=== PATIENT | female | born 1980 | race Caucasian/White ===

== ENCOUNTER 2022-09-16 03:53 | Emergency (ER) | payer BC, OTHER ==
[2022-09-16] MEDS ORDERED: Sodium Chloride 0.9% 1000 ML 1,000 ML IV STA (04:15)
[2022-09-16] MEDS ORDERED: Hydromorphone 1 mg/ml Injection IV ONE (04:15)
[2022-09-16] MEDS ORDERED: Zofran 4 MG/2 ML VIAL IV ONE (04:15)
[2022-09-16] MEDS ORDERED: Zofran 4 MG/2 ML VIAL ONE (04:20)
[2022-09-16] MEDS ORDERED: Hydromorphone 1 mg/ml Injection ONE (04:20)
[2022-09-16] MEDS ORDERED: Sodium Chloride 0.9% 1000 ML 1,000 ML ONE (04:20)
[2022-09-16 04:26] LABS: Absolute Neutrophil Ct (ANC) 7.33 x10^3/uL (1.4-6.9); Eosinophil % 1.6 % (0.00-5.0); Eosinophil (Absolute #) 0.18 x10^3/uL (0-0.5); Hematocrit 41.4 % (35-47); Hemoglobin 13.4 g/dL (12.0-16.0); Lymphocyte (Absolute #) 3.11 x10^3/uL (1.0-4.6); Lymphocytes % 26.9 % (24.0-44.0); Mean Cell Volume 90.2 fL (78-100); Mean Corpuscular Hemoglobin 29.2 pg (26-32); Mean Corpuscular Hgb Concent. 32.4 g/dL (32-36); Mean Platelet Volume 10.3 fL (7.5-11.0); Monocyte (Absolute #) 0.77 x10^3/uL (0.0-1.3); Monocytes % 6.7 % (0.0-12.0); Neutrophil % 63.5 % (36.0-66.0); Platelet Count 297 x10^3/uL (150-450); Red Blood Count 4.59 x10^6/uL (4.1-5.4); Red Cell Distribution Width 13.1 % (11.5-14.0); White Blood Count 11.5 x10^3/uL (4.0-10.5)
[2022-09-16 04:40] LABS: ALBUMIN 4.4 g/dL (3.5-5.0); ALKALINE PHOSPHATASE 57 U/L (38-126); AMYLASE 65 U/L (30-110); ANION GAP 12.1 MEQ/L (5-15); BLOOD UREA NITROGEN 19 mg/dL (7-17); CHLORIDE 105 mmol/L (98-107); Calcium 9.3 mg/dL (8.4-10.2); Carbon Dioxide 25 mmol/L (22-30); Creatinine 1 0.62 mg/dL (0.52-1.04); EST GLOMERULAR FILTRATION RATE > 60.0 ML/MIN; Glucose 104 mg/dL (74-106); LIPASE 136 U/L (23-300); Potassium 3.8 mmol/L (3.5-5.1); SGOT/AST 39 U/L (14-36); SGPT/ALT 34 U/L (0-35); SODIUM 138 mmol/L (137-145); Total Protein 7.3 g/dL (6.3-8.2)
[2022-09-16 04:42] LABS: INR 1.03 (0.8-3.0); PROTIME 10.9 SECONDS (9.4-12.5)
[2022-09-16 05:05] VITALS: O2SAT 97
[2022-09-16 05:42] LABS: Appearance CLEAR (CLEAR); Bilirubin NEGATIVE (NEGATIVE); Dipstick done @ ? MAIN LAB; Glucose NEGATIVE (NEGATIVE); Ketones NEGATIVE (NEGATIVE); Nitrite NEGATIVE (NEGATIVE); Ph 6.5 (5-6); Protein,Urine Dip NEGATIVE (Negative); RBC TRACE-LYSED Ery/ul (0-5); Urobilinogen 0.2 mg/dL (0-1)
[2022-09-16 05:49] LABS: Bacteria RARE /HPF (NEGATIVE); Epithelial Cells RARE /HPF (FEW); Mucus SLIGHT /HPF (NEGATIVE)
[2022-09-16 05:52] LABS: Urine Cultured Indicated? NO
[2022-09-16 06:10] VITALS: BP 103/75; PULSE 63
--- NOTE | 2022-09-16 06:10 | ERPHSYRPT ---
- History of Present Illness Time Seen by Provider: 09/16/22 04:00 Historian: patient Exam Limitations: no limitations Patient Subjective Stated Complaint: pt states she woke up at approx 0230 with epigastric pain. rates 06/27 Triage Nursing Assessment: pt alert and oriented, answers questions approp. pt ambulatory with steady gait noted. respirations nonlabored. skin warm and dry. abd soft and nontender tli light palpation. Physician History: Patient is a 42-year-old female who presents with a complaint of epigastric pain which started approximately 2:30 AM she has had nausea but no vomiting the pain is epigastric in location and goes through to the back. Only previous surgeries include a vaginal ablation and bilateral tubal ligation as well as ovarian cyst. Timing/Duration: today Activities at Onset: none Quality: cramping Abdominal Pain Onset Location: epigastric Pain Radiation: back Severity of Pain-Max: severe Severity of Pain-Current: mild Modifying Factors: Improves With: nothing Associated Symptoms: nausea Previous symptoms: no prior history Allergies/Adverse Reactions: strawberry Allergy (Mild, Verified 09/16/22 04:08) Home Medications: Fexofenadine HCl [Allie Allergy] 180 mg PO DAILY 09/16/22 [History] Thyroid,Pork [Plaster Foreman Thyroid 120] 60 mg PO DAILY 09/16/22 [History] Hx Tetanus, Diphtheria Vaccination/Date Given: Yes Hx Influenza Vaccination/Date Given: Yes Hx Pneumococcal Vaccination/Date Given: No Immunizations Up to Date: Yes Travel Risk - International Travel Have you traveled outside of the country in past 3 weeks: No - Coronavirus Screening Are you exhibiting any of the following symptoms?: No Close contact with a COVID-19 positive Pt in past 14-21 Days: No - Vaccine Status Have you recieved a Covid-19 vaccination: Yes 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: [employer] - Vaccination Dates Date of 2cond Vaccination (if applicable): jul 2022 - Review of Systems Constitutional: No Fever, No Chills Eyes: No Symptoms Ears, Nose, & Throat: No Symptoms Respiratory: No Cough, No Dyspnea Cardiac: No Chest Pain, No Edema, No Syncope Abdominal/Gastrointestinal: Abdominal Pain, Nausea, No Vomiting, No Diarrhea Genitourinary Symptoms: No Dysuria Musculoskeletal: No Back Pain, No Neck Pain Skin: No Rash Neurological: No Dizziness, No Focal Weakness, No Sensory Changes Psychological: No Symptoms Endocrine: No Symptoms All Other Systems: Reviewed and Negative - Past Medical History Pertinent Past Medical History: Yes Other Medical History: OVARIAN CYSTS - Past Surgical History Past Surgical History: Yes Musculoskeletal: Orthopedic Surgery Female Surgical History: Tubal Ligation Other Surgical History: KNEE, uterine ablation, surgery for ovarian cysts - Social History Smoking Status: Former smoker Exposure to second hand smoke: No Drug Use: none Patient Lives Alone: No - Female History Hx Last Menstrual Period: 3 weeks Hx Now: No - Nursing Vital Signs Nursing Vital Signs: Initial Vital Signs Temperature 97.1 F 09/16/22 03:56 Pulse Rate 90 09/16/22 03:56 Respiratory Rate 16 09/16/22 03:56 Blood Pressure 113/74 09/16/22 03:56 O2 Sat by Pulse Oximetry 98 09/16/22 03:56 Pain Scale Pain Intensity 2 - Physical Exam General Appearance: moderate distress, alert Eye Exam: PERRL/EOMI, eyes nml inspection Ears, Nose, Throat Exam: normal ENT inspection, pharynx normal, moist mucous membranes Neck Exam: normal inspection, non-tender, supple, full range of motion Respiratory Exam: normal breath sounds, lungs clear, No respiratory distress Cardiovascular Exam: regular rate/rhythm, normal heart sounds Gastrointestinal/Abdomen Exam: tenderness (Epigastrium), guarding, No mass Back Exam: normal inspection, normal range of motion, No CVA tenderness, No vertebral tenderness Extremity Exam: normal inspection, normal range of motion, pelvis stable Neurologic Exam: alert, oriented x 3, cooperative, normal mood/affect, nml cerebellar function, sensation nml, No motor deficits Skin Exam: normal color, warm, dry SpO2: 97 - Course Nursing assessment & vital signs reviewed: Yes EKG Interpreted by Me: RATE (60), Sinus Rhythm, NORMAL AXIS, NORMAL INTERVALS, NORMAL QRS, NORMAL ST-T - CT Exams Abdomen/Pelvis CT Interpretation: Tele-radiologist Report Ordered Tests: Active Orders 24 hr Category Date Time Status EKG-ER Only STAT Care 09/16/22 04:15 Active IV Insertion STAT Care 09/16/22 04:15 Active ABDOMEN AND PELVIS W CONTRAST [CT] Stat Exams 09/16/22 04:16 Taken CHEST 1 VIEW (PORTABLE) Stat Exams 09/16/22 04:16 Taken AMYLASE Stat Lab 09/16/22 04:23 Completed CBC W DIFF Stat Lab 09/16/22 04:23 Completed CMP Stat Lab 09/16/22 04:23 Completed LIPASE Stat Lab 09/16/22 04:23 Completed Lactic Acid Stat Lab 09/16/22 04:15 Ordered PROTIME WITH INR Stat Lab 09/16/22 04:23 Completed TROPONIN Q4H Lab 09/16/22 04:23 Completed TROPONIN Q4H Lab 09/16/22 08:30 Ordered TROPONIN Q4H Lab 09/16/22 12:30 Ordered UA W/RFX CULTURE Stat Lab 09/16/22 05:34 Completed Medication Summary Discontinued Medications Generic Name Dose Route Start Last Admin Trade Name Freq PRN Reason Stop Dose Admin Hydromorphone HCl 1 mg 09/16/22 04:15 09/16/22 04:24 Hydromorphone 1 Mg/1ml Inj 1 Mg/Ml Syringe IV 09/16/22 04:16 1 mg STAT ONE Administration Hydromorphone HCl Confirm 09/16/22 04:20 Hydromorphone 1 Mg/1ml Inj 1 Mg/Ml Syringe Administered 09/16/22 04:21 Dose 1 mg .ROUTE .STK-MED ONE Sodium Chloride 1,000 mls @ 999 mls/hr 09/16/22 04:15 09/16/22 05:35 Sodium Chloride 0.9% 1000 Ml IV 09/16/22 05:15 Infused .Q1H1M STA Infusion Sodium Chloride Confirm 09/16/22 04:20 Sodium Chloride 0.9% 1000 Ml Administered 09/16/22 04:21 Dose 1,000 mls @ ud .ROUTE .STK-MED ONE Ondansetron HCl 4 mg 09/16/22 04:15 09/16/22 04:24 Ondansetron Hcl 4 Mg/2 Ml Vial IV 09/16/22 04:16 4 mg STAT ONE Administration Ondansetron HCl Confirm 09/16/22 04:20 Ondansetron Hcl 4 Mg/2 Ml Vial Administered 09/16/22 04:21 Dose 4 mg .ROUTE .STK-MED ONE Lab/Rad Data: Laboratory Result Diagrams 09/16/22 04:23 09/16/22 04:23 Laboratory Results 09/16/22 09/16/22 09/16/22 Range/Units 05:34 04:23 04:23 WBC (4.0-10.5) x10^3/uL RBC (4.1-5.4) x10^6/uL Hgb (12.0-16.0) g/dL Hct (35-47) % MCV (78-100) fL MCH (26-32) pg MCHC (32-36) g/dL RDW (11.5-14.0) % Plt Count (150-450) x10^3/uL MPV (7.5-11.0) fL Gran % (36.0-66.0) % Immature Gran % (Auto) (0.00-0.4) % Nucleat RBC Rel Count (0.00-0.1) % Eos # (Auto) (0-0.5) x10^3/uL Immature Gran # (Auto) (0.00-0.03) x10^3u/L Absolute Lymphs (auto) (1.0-4.6) x10^3/uL Absolute Monos (auto) (0.0-1.3) x10^3/uL Absolute Nucleated RBC (0.00-0.01) x10^3u/L Lymphocytes % (24.0-44.0) % Monocytes % (0.0-12.0) % Eosinophils % (0.00-5.0) % Basophils % (0.0-0.4) % Absolute Granulocytes (1.4-6.9) x10^3/uL Basophils # (0-0.4) x10^3/uL PT 10.9 (9.4-12.5) SECONDS INR 1.03 (0.8-3.0) Sodium (137-145) mmol/L Potassium (3.5-5.1) mmol/L Chloride (98-107) mmol/L Carbon Dioxide (22-30) mmol/L Anion Gap (5-15) MEQ/L BUN (7-17) mg/dL Creatinine (0.52-1.04) mg/dL Estimated GFR ML/MIN Glucose (74-106) mg/dL Calcium (8.4-10.2) mg/dL Total Bilirubin (0.2-1.3) mg/dL AST (14-36) U/L ALT (0-35) U/L Alkaline Phosphatase (38-126) U/L Troponin I < 0.012 (0.000-0.034) ng/mL Serum Total Protein (6.3-8.2) g/dL Albumin (3.5-5.0) g/dL Amylase (30-110) U/L Lipase (23-300) U/L Urinalys Dipstick Clnc MAIN LAB Urine Color YELLOW (YELLOW) Urine Appearance CLEAR (CLEAR) Urine pH 6.5 (5-6) Ur Specific [place] 1.010 (1.005-1.025) POC Urine Protein Conf NEGATIVE (Negative) Urine Ketones NEGATIVE (NEGATIVE) Urine Nitrite NEGATIVE (NEGATIVE) Urine Bilirubin NEGATIVE (NEGATIVE) Urine Urobilinogen 0.2 (0-1) mg/dL Urine Leukocytes NEGATIVE (NEGATIVE) Urine WBC (Auto) NONE (0-5) /HPF Urine RBC (Auto) 6-10 A (0-2) /HPF U Epithel Cells (Auto) RARE (FEW) /HPF Urine Bacteria (Auto) RARE (NEGATIVE) /HPF Urine RBC TRACE-LYSED A (0-5) David/ul Urine Mucus (Auto) SLIGHT A (NEGATIVE) /HPF Ur Culture Indicated? NO Urine Glucose NEGATIVE (NEGATIVE) mg/dL 09/16/22 09/16/22 Range/Units 04:23 04:23 WBC 11.5 H (4.0-10.5) x10^3/uL RBC 4.59 (4.1-5.4) x10^6/uL Hgb 13.4 (12.0-16.0) g/dL Hct 41.4 (35-47) % MCV 90.2 (78-100) fL MCH 29.2 (26-32) pg MCHC 32.4 (32-36) g/dL RDW 13.1 (11.5-14.0) % Plt Count 297 (150-450) x10^3/uL MPV 10.3 (7.5-11.0) fL Gran % 63.5 (36.0-66.0) % Immature Gran % (Auto) 0.4 (0.00-0.4) % Nucleat RBC Rel Count 0.0 (0.00-0.1) % Eos # (Auto) 0.18 (0-0.5) x10^3/uL Immature Gran # (Auto) 0.05 H (0.00-0.03) x10^3u/L Absolute Lymphs (auto) 3.11 (1.0-4.6) x10^3/uL Absolute Monos (auto) 0.77 (0.0-1.3) x10^3/uL Absolute Nucleated RBC 0.00 (0.00-0.01) x10^3u/L Lymphocytes % 26.9 (24.0-44.0) % Monocytes % 6.7 (0.0-12.0) % Eosinophils % 1.6 (0.00-5.0) % Basophils % 0.9 (0.0-0.4) % Absolute Granulocytes 7.33 H (1.4-6.9) x10^3/uL Basophils # 0.10 (0-0.4) x10^3/uL PT (9.4-12.5) SECONDS INR (0.8-3.0) Sodium 138 (137-145) mmol/L Potassium 3.8 (3.5-5.1) mmol/L Chloride 105 (98-107) mmol/L Carbon Dioxide 25 (22-30) mmol/L Anion Gap 12.1 (5-15) MEQ/L BUN 19 H (7-17) mg/dL Creatinine 0.62 (0.52-1.04) mg/dL Estimated GFR > 60.0 ML/MIN Glucose 104 (74-106) mg/dL Calcium 9.3 (8.4-10.2) mg/dL Total Bilirubin 1.20 (0.2-1.3) mg/dL AST 39 H (14-36) U/L ALT 34 (0-35) U/L Alkaline Phosphatase 57 (38-126) U/L Troponin I (0.000-0.034) ng/mL Serum Total Protein 7.3 (6.3-8.2) g/dL Albumin 4.4 (3.5-5.0) g/dL Amylase 65 (30-110) U/L Lipase 136 (23-300) U/L Urinalys Dipstick Clnc Urine Color (YELLOW) Urine Appearance (CLEAR) Urine pH (5-6) Ur Specific [place] (1.005-1.025) POC Urine Protein Conf (Negative) Urine Ketones (NEGATIVE) Urine Nitrite (NEGATIVE) Urine Bilirubin (NEGATIVE) Urine Urobilinogen (0-1) mg/dL Urine Leukocytes (NEGATIVE) Urine WBC (Auto) (0-5) /HPF Urine RBC (Auto) (0-2) /HPF U Epithel Cells (Auto) (FEW) /HPF Urine Bacteria (Auto) (NEGATIVE) /HPF Urine RBC (0-5) David/ul Urine Mucus (Auto) (NEGATIVE) /HPF Ur Culture Indicated? Urine Glucose (NEGATIVE) mg/dL - Progress Progress: improved - Departure Departure Disposition: Home Clinical Impression: Biliary colic Condition: Stable Critical Care Time: No Referrals: JUSTIN PRICE NP [Primary Care Provider] - Follow up/PCP as directed Instructions: Severe Abdominal Pain, Adult (DC) Prescriptions: Hydrocodone/Acetaminophen [Hydrocodone-Acetamin 5-325 mg] 1 tab PO Q6HPRN PRN 3 Days #12 tablet MDD 4 PRN Reason: Pain Ondansetron ODT 4 MG [Zofran Odt 4 mg] 4 mg PO Q6H PRN PRN #10 tablet PRN Reason: Vomiting PANTOPRAZOLE 40 mg Tablet [Protonix 40MG Tablet] 40 mg PO QAM 30 Days #30 tab
--- NOTE | 2022-09-16 08:04 | XRAY ---
Indication: Epigastric pain. Multiple contiguous axial images obtained through the abdomen and pelvis using 80 cc Isovue 370 contrast. Comparison: March 11, 2018 Lung bases demonstrates minimal bibasilar dependent atelectasis. Stable tiny right base calcified granuloma. Heart not enlarged. Stomach is distended with food/fluid. Noncontrasted stomach and bowel loops appear nonobstructed again with normal appendix. There is now mild diffuse scatter colonic fecal debris greatest in the right hemicolon. Small collapsing right ovary cyst with tiny cul-de-sac fluid. Gallbladder is moderately distended without gallstones or biliary distention. No free air. Remaining liver, pancreas, spleen, adrenal glands, kidneys, ureters, bladder, uterus, and aorta are unremarkable. No pathologic retroperitoneal lymphadenopathy. Osseous structures intact. Impression: 1. Distended gallbladder better evaluated with sonogram. 2. Mild diffuse fecal stasis. 3. Collapsing right ovary cyst with tiny cul-de-sac fluid. Comment: Preliminary interpretation made by C. No critical discrepancy.
--- NOTE | 2022-09-16 08:06 | XRAY ---
Indication: Epigastric pain. Comparison: None Portable chest demonstrates normal heart, lungs, and bony thorax with incidental tiny right base calcified granuloma.
== END 2022-09-16 06:32 | disposition home or self-care (01) ==
LOC: ED 03:53
DX: K80.50 Calculus of bile duct without cholangitis or cholecystitis without obstruction (principal); R10.13 Epigastric pain; R11.0 Nausea; Z79.891 Long term (current) use of opiate analgesic; Z79.899 Other long term (current) drug therapy
CPT/HCPCS: 36000; 36415; 71045; 74177; 80053; 81015; 82150; 83690; 84484; 85025; 85610; 93005; 96360; 96374; 96375; 99284; J1170; J2405

== ENCOUNTER 2023-02-15 06:29 | Day surgery (SDC) | payer BC ==
[~2023-02-15 06:29] MED LIST: Marcaine Mpf 0.5% Vial 30 Ml ONE; Xylocaine 1% Vial 30 ML PF IJ ONE
[2023-02-15] MEDS ORDERED: Lactated Ringers 1,000 ML IV SCH (07:00)
[2023-02-15] MEDS ORDERED: CEFAZOLIN 2 GM-D5W BAG** 2 GM/50 ML ML IV SCH (07:00)
[2023-02-15 07:22] LABS: Hematocrit 41.1 % (35-47); Hemoglobin 13.9 g/dL (12.0-16.0); Mean Cell Volume 87.1 fL (78-100); Mean Corpuscular Hemoglobin 29.4 pg (26-32); Mean Corpuscular Hgb Concent. 33.8 g/dL (32-36); Mean Platelet Volume 9.7 fL (7.5-11.0); Platelet Count 325 x10^3/uL (150-450); Red Blood Count 4.72 x10^6/uL (4.1-5.4); Red Cell Distribution Width 13.4 % (11.5-14.0); White Blood Count 8.5 x10^3/uL (4.0-10.5)
[2023-02-15 07:37] LABS: ALBUMIN 4.3 g/dL (3.5-5.0); ALKALINE PHOSPHATASE 65 U/L (38-126); ANION GAP 16.7 MEQ/L (5-15); BLOOD UREA NITROGEN 12 mg/dL (7-17); CHLORIDE 103 mmol/L (98-107); Carbon Dioxide 24 mmol/L (22-30); Creatinine 1 0.67 mg/dL (0.52-1.04); EST GLOMERULAR FILTRATION RATE > 60.0 ML/MIN; Glucose 102 mg/dL (74-106); Potassium 3.9 mmol/L (3.5-5.1); SGOT/AST 33 U/L (14-36); SGPT/ALT 45 U/L (0-35); SODIUM 140 mmol/L (137-145); Total Protein 7.5 g/dL (6.3-8.2)
[2023-02-15 07:39] LABS: INR 0.94 (0.8-3.0); PROTIME 10.3 SECONDS (9.4-12.5); PTT 26.9 SECONDS (25.1-36.5)
[2023-02-15] MEDS ORDERED: Xylocaine-Mpf 2% 5 Ml Vial ONE (10:05)
[2023-02-15] MEDS ORDERED: Zofran 4 MG/2 ML VIAL ONE (10:05)
[2023-02-15] MEDS ORDERED: SUBLIMAZE 100 MCG/2 ML ONE (10:05)
[2023-02-15] MEDS ORDERED: Decadron 4 MG INJ ONE (10:05)
[2023-02-15] MEDS ORDERED: TORAdol 30 mg Injection ONE (10:05)
[2023-02-15] MEDS ORDERED: DIPRIVAN 200 MG/20 ML IV ONE (10:05)
[2023-02-15] MEDS ORDERED: Quelicin Fliptop 200 MG/10 ML ONE (10:06)
[2023-02-15] MEDS ORDERED: DEXMEDETOMIDINE 80 MCG/20ML-NS IV ONE (10:06)
[2023-02-15] MEDS ORDERED: OFIRMEV 100 ML IV ONE (10:12)
[2023-02-15] MEDS ORDERED: Magnesium Sulfate 1 GM/2 ML VIAL ONE (10:12)
[2023-02-15] MEDS ORDERED: Pre-Attached Lta Kit TP ONE (10:12)
[2023-02-15] MEDS ORDERED: Versed 2 MG/2 ML Injection ONE (10:14)
[2023-02-15] MEDS ORDERED: Zemuron 100 MG/10 ML ONE (10:57)
[2023-02-15] MEDS ORDERED: BRIDION 200MG/2ML IV ONE (10:59)
[2023-02-15] MEDS ORDERED: Lactated Ringers 1,000 ML IV ONE (11:10)
--- NOTE | 2023-02-15 12:32 | XRAY ---
Indication: Left foot Kidner procedure with posterior tibial tendon debridement and advancement. Intraoperative fluoroscopy provided for 29 seconds. 11 digital spot images submitted for interpretation demonstrates instrumentation navicular bone. Correlate with intraoperative findings/report.
[2023-02-15] MEDS ORDERED: Ephedrine Sulfate 50 MG/ML ONE (13:08)
[2023-02-15 13:20] VITALS: O2SAT 97
[2023-02-15 13:22] VITALS: BP 129/85; PULSE 97
--- NOTE | 2023-02-15 15:22 | OP ---
SURGERY DATE: 02/15/2023 SURGERY TIME: 1016 PREOPERATIVE DIAGNOSIS: 1. LEFT FOOT PAIN. 2. ACCESSORY NAVICULAR. 3. POSTERIOR TIBIAL TENDON DYSFUNCTION. POSTOPERATIVE DIAGNOSIS: 1. LEFT FOOT PAIN. 2. ACCESSORY NAVICULAR. 3. POSTERIOR TIBIAL TENDON DYSFUNCTION. PROCEDURE: 1. Excision of os naviculare. 2. Repair of posterior tibial tendon with advancement. SURGEON: Ammon Ruiz D.P.M. BACCARAT DEALER: None. ANESTHESIA: General with a postoperative ankle block. See injectables for details. HEMOSTASIS: A thigh tourniquet set to 350 mm Hg for 44 total tourniquet minutes. ESTIMATED BLOOD LOSS: Minimal. MATERIALS: Two 1.45 JuggerKnots with broadband, 4-0 Monocryl, 2-0 Vicryl, and 3-0 Nylon. INJECTABLES: 30 cc of a 1:1 mixture of 1% Lidocaine plain, 0.5% Bupivicaine plain injected in an ankle block type fashion to the left ankle. INDICATIONS FOR PROCEDURE: Moira is a very pleasant 42 y/o female who presented to my service for complaints of pain to the inner aspect of the left ankle. The patient failed conservative modalities of addressing her pain consisting of home stretching exercises, anti-inflammatories, immobilization in a Cam boot, and physician therapy. At this time, the patient wished to proceed with surgical intervention. The patient had no known indications of a pes planus as indicated by her weight-bearing x-rays, so the decision was made to proceed with an excision of the os naviculare and a posterior tibial tendon debridement with advancement. The patient understands all risks, complications, and benefits of surgical intervention at this time including, but not limited to, infection, hematoma, seroma, possibility of delayed wound healing, non-wound healing, possibility of tendon failure, and possible need for surgical intervention at a later date. No guarantees have been provided as to the outcome of surgical intervention at this time. It is with that we decided to proceed. DESCRIPTION OF PROCEDURE: The patient was brought in to the OR and placed on the OR table in the supine position. At this time, general anesthesia was administered until the patient was sedated. A well-padded thigh tourniquet was applied to the patient's left thigh and the left lower extremity was prepped and draped in the typical sterile fashion. At this time, attention was directed to the medial aspect of the left foot where the plantar and dorsal margins of the navicular were palpated. A line bisecting these 2 points was indicated and incision was deepened along these planes. This was carried out utilizing an 11 blade for the skin and carried down to the level of the navicular utilizing blunt and sharp dissection being careful not to damage any neurovascular structures along the way down to the cuff of the posterior tibial tendon. At this time, the dorsal aspect of the cuff of the navicular was resected leaving a prominent portion of the plantar posterior tibial tendon intact. The os naviculare was then resected from the site utilizing a 15 blade, dissection scissors, and a Keagan. Following this, the medial aspect of the navicular was planed down utilizing a 31 mm blade and the distal aspect of the joint was planed down utilizing a rasp in order to prevent any bone from entering the talonavicular joint. This capsule was not violated. The tendon was then inspected and any calcifications within the tendon were debrided and repaired. Following this, the 1.45 JuggerKnots with broadband were inserted into the navicular being careful not to interfere in the articulation of the navicular cuneiform or the talonavicular joints. Following this, the tendon was advanced and secured to the surface of the bone utilizing the 1.45 JuggerKnot. These were tied down. The tendon sheath was closed over the tendon. Copious amounts of sterile saline were utilized to flush the surgical site. It was at this time that 2-0 Vicryl was then utilized to repair the tendon sheath, 4-0 Monocryl was then utilized to coapt subcutaneous edges, and the skin with 3-0 Nylon in a horizontal mattress type fashion. Following this, the tourniquet was let down at a total of 44 total tourniquet minutes. A postoperative ankle block was performed at this time utilizing 30 cc of a 1:1 mixture of 1% Lidocaine plain and 0.5% Bupivicaine plain. Following this, a well-padded posterior splint with sugar-tong was applied to the patient's left lower extremity and patient was then reversed from anesthesia and returned to the PACU with vital signs stable and vascular status intact. The patient handled the anesthesia as well as procedure without significant complication. POSTOPERATIVE ORDERS: As indicated in the patient's discharge chart.
== END 2023-02-15 13:25 | disposition home or self-care (01) ==
LOC: SDC 06:29
PROVIDERS: ATTEND Podiatrist Foot & Ankle Surgery
DX: M21.6X2 Other acquired deformities of left foot (principal); M79.672 Pain in left foot; M76.822 Posterior tibial tendinitis, left leg; D64.9 Anemia, unspecified
CPT/HCPCS: 27658; 28238; 36415; 73630; 76000; 80053; 81025; 85027; 85610; 85730; C1713; J0330; J0690; J1100; J1885; J2001; J2250; J2405; J2704; J3010; J3475